=== PATIENT | male | born 1965 | race Caucasian/White ===

== ENCOUNTER 2022-08-17 20:16 | Emergency (ER) | payer OTHER ==
[~2022-08-17] VITALS: Ht 175.3 cm; Wt 86.2 kg
[2022-08-17 20:16] VITALS: BP_SYST 115
--- NOTE | 2022-08-17 20:20 | NUR ---
Patient triaged and placed in waiting room. VSS and patient appears in no acute distress at this time. Accompanied by SELF, awaiting available bed, and MD notified of need for MSE.
--- NOTE | 2022-08-17 21:50 | NUR ---
CALLED FOR BED PLACEMENT AND UNABLE TO LOCATE PT IN WAITING ROOM
--- NOTE | 2022-08-17 22:10 | NUR ---
CALLED FOR BED PLACEMENT AND UNABLE TO LOCATE PT IN WAITING ROOM
== END 2022-08-17 22:15 | disposition left against medical advice (07) ==
LOC: SED 20:16
DX: R06.02 Shortness of breath (principal); R05.9 Cough, unspecified; Z53.21 Procedure and treatment not carried out due to patient leaving prior to being seen by health care provider
CPT/HCPCS: 99281